=== PATIENT | female | born 1985 | race Caucasian/White ===

== ENCOUNTER 2018-09-19 20:30 | Emergency (ER) | payer OTHER ==
--- NOTE | 2018-09-19 21:39 | ED ---
Female Urogenital HPI - General Chief complaint: Vaginal Bleeding Stated complaint: 10 wks , bleeding Time Seen by Provider: 09/19/18 21:05 Source: patient, family Mode of arrival: ambulatory Limitations: no limitations - History of Present Illness Initial comments: Patient is a 33-year-old female presenting to the emergency Department with comp laints of increase in vaginal bleeding and lower abdominal cramping 2 days. Patient admits to being 10-1/2 weeks . Patient is . Patient states she has been having a little bit of spotting here and there are during this but states the bleeding has increased the last 2 days and then today she started having lower abdominal cramping. Patient seen her OB, Dr. Granda, on Friday for initial visit which just included lab work and a UA. Patient has yet to hear results on that. No other complaints at this time. - Related Data Home Medications Medication Instructions Recorded Confirmed Albuterol Nebulized [Ventolin 2.5 mg INHALATION RT-Q4H PRN 12/30/16 12/30/16 Nebulized] Albuterol Sulfate [Proair Hfa] 2 puff INHALATION RT-Q4H PRN 12/30/16 12/30/16 Previous Rx's Medication Instructions Recorded Cephalexin [Keflex] 500 mg PO Q12HR 10 Days cap 12/30/16 Allergies Allergy/AdvReac Type Severity Reaction Status Date / Time No Known Allergies Allergy Verified 09/19/18 21:03 Review of Systems ROS Statement: Those systems with pertinent positive or pertinent negative responses have been documented in the HPI. ROS Other: All systems not noted in ROS Statement are negative. Past Medical History Past Medical History: Asthma History of Any Multi-Drug Resistant Organisms: None Reported Past Surgical History: Section Past Anesthesia/Blood Transfusion Reactions: No Reported Reaction Past Psychological History: Anxiety, Depression Smoking Status: Current every day smoker Past Alcohol Use History: None Reported Past Drug Use History: Marijuana - Past Family History Father Family Medical History: Hypertension General Exam - General Exam Comments Initial Comments: GENERAL: Well-appearing, well-nourished and in no acute distress. HEAD: Atraumatic, normocephalic. EYES: Pupils equal round and reactive to light, extraocular movements intact, sclera anicteric, conjunctiva are normal. ENT: TMs normal, nares patent, oropharynx clear without exudates. Moist mucous membranes. NECK: Normal range of motion, supple without lymphadenopathy or JVD. LUNGS: Breath sounds clear to auscultation bilaterally and equal. Mild sc attered wheezes throughout (patient has history of asthma), No rales or rhonchi. HEART: Regular rate and rhythm without murmurs, rubs or gallops. ABDOMEN: Soft, nontender, normoactive bowel sounds. No guarding, no rebound. No masses appreciated. : Deferred, declined at this time EXTREMITIES: Normal range of motion, no pitting or edema. No clubbing or cyanosis. NEUROLOGICAL: Cranial nerves II through XII grossly intact. Normal speech, normal gait. PSYCH: Normal mood, normal affect. SKIN: Warm, Dry, normal turgor, no rashes or lesions noted. Limitations: no limitations Course Vital Signs 09/19/18 20:57 Temperature 98.3 F Pulse Rate 65 Respiratory 18 Rate Blood Pressure 133/82 O2 Sat by Pulse 100 Oximetry Medical Decision Making - Medical Decision Making Patient is a 33-year-old female with complaints of vaginal bleeding and abdominal cramping 2 days. Patient states she is 10.5 weeks . Patient is . Patient just recently had an initial visit with her OB, Dr. Granda, about 4 days ago and had very minimal spotting at that time. They had told her if her bleeding increases to come to the ER. Patient states last 2 days her bleeding has increased and now today she developed lower abdominal cramping. Patient declined vaginal exam at this time. Patient's CBC, CMP, UA are within normal limits. Ultrasound shows a pole measuring her gestational age of 8 weeks and no heart rate is detected this time. Findings are compatible with demise. Findings this were discussed with the patient. Patient states she believes she has positive type blood. Patient will follow up with OB on Friday morning. Return parameters were discussed with patient she verbalized understanding. Vital signs have remained stable during stay and patient will be discharged home. Case discussed with Dr. Lara. - Lab Data Result diagrams: 09/19/18 22:00 09/19/18 22:00 Lab Results 09/19/18 09/19/18 09/19/18 Range/Units 22:00 22:00 22:00 WBC 8.9 (3.8-10.6) k/uL RBC 4.32 (3.80-5.40) m/uL Hgb 14.3 (11.4-16.0) gm/dL Hct 42.7 (34.0-46.0) % MCV 98.7 (80.0-100.0) fL MCH 33.1 (25.0-35.0) pg MCHC 33.5 (31.0-37.0) g/dL RDW 12.0 (11.5-15.5) % Plt Count 229 (150-450) k/uL Neutrophils % 66 % Lymphocytes % 23 % Monocytes % 5 % Eosinophils % 3 % Basophils % 1 % Neutrophils # 5.9 (1.3-7.7) k/uL Lymphocytes # 2.0 (1.0-4.8) k/uL Monocytes # 0.5 (0-1.0) k/uL Eosinophils # 0.3 (0-0.7) k/uL Basophils # 0.1 (0-0.2) k/uL Sodium 140 (137-145) mmol/L Potassium 3.6 (3.5-5.1) mmol/L Chloride 105 (98-107) mmol/L Carbon Dioxide 25 (22-30) mmol/L Anion Gap 10 mmol/L BUN 6 L (7-17) mg/dL Creatinine 0.50 L (0.52-1.04) mg/dL Est GFR (CKD-EPI)AfAm >90 (>60 ml/min/1.73 sqM) Est GFR (CKD-EPI)NonAf >90 (>60 ml/min/1.73 sqM) Glucose 87 (74-99) mg/dL Calcium 9.7 (8.4-10.2) mg/dL HCG, Quant 56472.1 mIU/mL Urine Color Light Red Urine Appearance Cloudy H (Clear) Urine pH 6.0 (5.0-8.0) Ur Specific [place] 1.009 (1.001-1.035) Urine Protein 1+ H (Negative) Urine Glucose (UA) Negative (Negative) Urine Ketones Negative (Negative) Urine Blood Large H (Negative) Urine Nitrite Negative (Negative) Urine Bilirubin Negative (Negative) Urine Urobilinogen <2.0 (<2.0) mg/dL Ur Leukocyte Esterase Small H (Negative) Urine RBC >182 H (0-5) /hpf Urine WBC 16 H (0-5) /hpf Ur Squamous Epith Cells 4 (0-4) /hpf Disposition Clinical Impression: Incomplete , Vaginal bleeding Disposition: HOME SELF-CARE Condition: Stable Instructions (If sedation given, give patient instructions): Miscarriage (ED) Additional Instructions: Please return to the Emergency Department if symptoms worsen or any other concerns. Follow-up with your OB doctor on Friday morning. Is patient prescribed a controlled substance at d/c from ED?: No Referrals: Og Everett MD [Primary Care Provider] - 1-2 days
[2018-09-19 22:14] LABS: Basophils # (A) 0.1 k/uL (0-0.2); Basophils % (A) 1 %; Eosinophils # (A) 0.3 k/uL (0-0.7); Eosinophils % (A) 3 %; HCT 42.7 % (34.0-46.0); HGB 14.3 gm/dL (11.4-16.0); Lymphocytes % (A) 23 %; MCH 33.1 pg (25.0-35.0); MCHC 33.5 g/dL (31.0-37.0); MCV 98.7 fL (80.0-100.0); Mean Platelet Volume 6.8; Monocytes # (A) 0.5 k/uL (0-1.0); Monocytes % (A) 5 %; Neutrophils # (A) 5.9 k/uL (1.3-7.7); Neutrophils % (A) 66 %; Platelet Count 229 k/uL (150-450); RBC 4.32 m/uL (3.80-5.40); WBC 8.9 k/uL (3.8-10.6)
[2018-09-19 22:16] LABS: African American GFR (CKD) >90 (>60 ml/min/1.73 sqM); Anion Gap 10 mmol/L; Blood Urea Nitrogen 6 mg/dL (7-17); Calcium 9.7 mg/dL (8.4-10.2); Carbon Dioxide 25 mmol/L (22-30); Chloride 105 mmol/L (98-107); Glucose 87 mg/dL (74-99); Potassium 3.6 mmol/L (3.5-5.1); Sodium 140 mmol/L (137-145)
[2018-09-19 22:24] LABS: Appearance,Urine Cloudy (Clear); Bilirubin,Urine Negative (Negative); Blood,Urine Large (Negative); Color,Urine Light Red; Glucose,Urine (UA) Negative (Negative); Ketones,Urine Negative (Negative); Leukocyte Esterase,Urine Small (Negative); Nitrite,Urine Negative (Negative); Protein,Urine 1+ (Negative); RBC,Urine >182 /hpf (0-5); Specific Gravity,Urine 1.009 (1.001-1.035); Squamous Epithelial Cell,Urine 4 /hpf (0-4); Urobilinogen,Urine <2.0 mg/dL (<2.0)
--- NOTE | 2018-09-19 22:50 | US ---
EXAM: US Pelvis, Transvaginal CLINICAL HISTORY: ITS.REASON US Reason: Pain, bleeding TECHNIQUE: Real-time transvaginal pelvic ultrasound (complete) with image documentation. Transvaginal imaging was used for better evaluation of the endometrium and adnexa. COMPARISON: No relevant prior studies available. FINDINGS: Uterus/cervix: 9 cm. Normal endometrial stripe thickness. No myometrial mass. Right ovary: 3.7 cm. No mass. Normal blood flow. Left ovary: Not visualized. Free fluid: No free fluid. Bladder: Empty bladder which cannot be evaluated with this probe. Gestation: crown-rump length of 1.5 cm corresponding to gestational age of 8 weeks and 0 days. No heart rate is detected. IMPRESSION: pole is identified measuring up to 1.5 cm with no underlying heart rate. Findings are compatible with demise.
[2018-09-19 23:02] LABS: HCG,Quantitative Serum 16871.1 mIU/mL
[2018-09-19 23:28] VITALS: BP 127/77; PULSE 61; RESP 16; TEMP 98.1
== END 2018-09-19 23:27 | disposition home or self-care (01) ==
LOC: EC 20:30
DX: O03.4 Incomplete spontaneous abortion without complication (principal); O99.511 Diseases of the respiratory system complicating pregnancy, first trimester; O99.331 Smoking (tobacco) complicating pregnancy, first trimester; J45.909 Unspecified asthma, uncomplicated; F17.200 Nicotine dependence, unspecified, uncomplicated; Z3A.10 10 weeks gestation of pregnancy
CPT/HCPCS: 36415; 76801; 76817; 80048; 81001; 84702; 85025; 87086; 99284

== ENCOUNTER → 2018-09-23 | Outpatient (CLI) | payer OTHER ==
--- NOTE | 2018-09-23 12:39 | US ---
EXAMINATION TYPE: Transabdominal DATE OF EXAM: 09/23/2018 12:17 PM COMPARISON: US 2018 CLINICAL HISTORY: O03.4 Incomplete spontaneous without comp. Pelvic cramping and bleeding, f etal demise on previous exam, 6, para 4. EXAM PERFORMED: Transabdominal (TA) EXAM MEASUREMENTS: GESTATIONAL AGE / DATING Physician Established: (11 weeks/0 days) EDC: 04/14/2019 Dates by LMP: Unknown Dates by First Scan: (8 weeks/0 days) EDC: 05/05/2019 Dates by Current Scan for: (8 weeks/1 days) EDC: 05/04/2019 MATERNAL ANATOMY Uterus: 9.4 x 4.8 x 5.9cm, anteverted Right Ovary: 3.0 x 1.7 x 1.4cm Left Ovary: 2.6 x 1.9 x 1.7cm Post CDS / Adnexa: wnl Presence of free fluid: no Presence of corpus luteal cyst: not seen Presence of subchorionic bleed: no GESTATION / SURVEY CRL: 1.7cm (8 weeks/1 days) Yolk Sac (normal less than 6mm): not seen IUP: Demise Date of LMP: Unknown Beta HcG (if available): Not available at time of exam. IMPRESSION: Findings compatible with demise. Correlate clinically.
== END | disposition home or self-care (01) ==
LOC: RADUSWWP 11:20
PROVIDERS: ATTEND Obstetrics & Gynecology
DX: O03.4 Incomplete spontaneous abortion without complication (principal); Z3A.08 8 weeks gestation of pregnancy
CPT/HCPCS: 76801; 84702

== ENCOUNTER 2018-09-25 05:56 | Day surgery (SDC) | payer OTHER ==
[~2018-09-25 05:56] MED LIST: Pre Op ABX Message 1 EACH MISC MISCELLANE ONE
[2018-09-25] MEDS ORDERED: LACTATED RINGERS 1,000 ML IV SCH (06:33)
[2018-09-25] MEDS ORDERED: ONDANSETRON 4 MG/2 ML VIAL IVP ONE (06:33)
[2018-09-25] MEDS ORDERED: SCOPOLAMINE 1.5MG/72HR PATCH TRANSDERM ONE (06:33)
[2018-09-25] MEDS ORDERED: LIDOCAINE 1% 20 ML VIAL (10MG/ML) FOR IV START INTRADERMA PRN (06:33)
[2018-09-25] MEDS ORDERED: DEXAMETHASONE SOD PHOSPHATE 10 MG/ML 1 ML VIAL IV ONE (06:33)
[2018-09-25] MEDS ORDERED: KETOROLAC 30 MG/ML 1 ML VIAL IVP SCH (06:33)
[2018-09-25] MEDS ORDERED: ONDANSETRON 4 MG/2 ML VIAL IVP PRN (06:33)
[2018-09-25] MEDS ORDERED: fentaNYL (PF) 50 MCG/ML 2 ML AMP ONE (07:58)
[2018-09-25] MEDS ORDERED: LIDOCAINE 1% INJ 10MG/ML (20 ML MDV) ONE (07:58)
[2018-09-25] MEDS ORDERED: PROPOFOL 10 MG/ML 20 ML VIAL IV ONE (07:58)
[2018-09-25] MEDS ORDERED: MIDAZOLAM 2 MG/2 ML VIAL ONE (07:58)
--- NOTE | 2018-09-25 08:10 | P.HPOB ---
History of Present Illness H&P Date: 09/25/18 Chief Complaint: Missed AB 33 y/o woman with history of 8 week demise verified on 2 u/s over the last 5 days. beta hcg is falling. patient is aware that a week demise much of time may be passed on its own, however she has a job that she is to return 2 and due to cramping and bleeding she is unable to work. She would like completion this process as she is very concerned about the pain and heavy bleeding associated with a spontaneous miscarriage. Risks/benefits/alternatives were discussed with patient in detail and did include but were not limited to bleeding and infection possible perforation possibly for further surgeries. All questions were answered for her prior to proceeding to the operative room. On physical exam vital signs are stable and afebrile. Heart regular, lungs clear, extremities without pain. Abdomen soft nontender. Positive bowel sounds are noted. Pelvic exam generally unremarkable other than for 8-10 week size uterus. Cervix is minimally open due to previous bleeding. Assessment missed AB plan suction D&C Past Medical History Past Medical History: Asthma Additional Past Medical History / Comment(s): miscarriage about 8 weeks bleeding 09/25/18 History of Any Multi-Drug Resistant Organisms: None Reported Past Surgical History: Section Past Anesthesia/Blood Transfusion Reactions: No Reported Reaction Past Psychological History: Anxiety, Depression Additional Psychological History / Comment(s): previously medicated Smoking Status: Current every day smoker Past Alcohol Use History: None Reported Additional Past Alcohol Use History / Comment(s): pt states has occasional glass of wine, states had 1/2 glass with dinner last night Past Drug Use History: Marijuana - Past Family History Father Family Medical History: Hypertension Medications and Allergies Home Medications Medication Instructions Recorded Confirmed Type Albuterol Nebulized [Ventolin 2.5 mg INHALATION RT-Q4H PRN 12/30/16 09/25/18 History Nebulized] Albuterol Sulfate [Proair Hfa] 2 puff INHALATION RT-Q4H PRN 12/30/16 09/25/18 History Beclomethasone Dipropionate [Qvar 2 puff INHALATION BID 09/25/18 09/25/18 History 80 mcg] Salmeterol Xinafoate [Serevent 50 mcg INHALATION DAILY 09/25/18 09/25/18 History Diskus] Allergies Allergy/AdvReac Type Severity Reaction Status Date / Time No Known Allergies Allergy Verified 09/19/18 21:03 Exam Osteopathic Statement: *. No significant issues noted on an osteopathic structural exam other than those noted in the History and Physical/Consult. Vital Signs Temp Pulse Resp BP Pulse Ox 09/25/18 06:43 96.9 F L 93 18 105/69 97 Intake and Output 09/24/18 09/25/18 09/25/18 22:59 06:59 14:59 Other: Weight 45.359 kg - OBG Physical Exam Breast: both: normal (no masses) Abdomen: bowel sounds normal, no diffuse tenderness, no bruit present, no guarding noted, no hepatomegaly, no splenomegaly, no mass Vulva: both: normal Vagina: normal moisture, no discharge Cervix: no lesion, no discharge Uterus: normal size, normal contour Adnexa: both: normal Anus/Rectum: normal perianal skin, no rectal mass, no hemorrhoids, heme negative
--- NOTE | 2018-09-25 08:34 | P.OP ---
Date of Procedure: 09/25/18 Preoperative Diagnosis: Missed AB Postoperative Diagnosis: Same Procedure(s) Performed: Suction D&C Anesthesia: YGA Surgeon: Sixto Hdz Estimated Blood Loss (ml): 100 Pathology: other (Uterine curettings) Condition: stable Disposition: same day Operative Findings: Tissue pathology pending Description of Procedure: Patient was taken to the operating suite where a general anesthetic was found be adequate. She was prepped and draped in normal sterile fashion and placed in dorsal lithotomy position. Initially a weighted speculum was inserted into the vagina and the anterior lip of the cervix was identified and grasped with single-tooth tenaculum. Cervix was then dilated and using a 9 curved tip suction catheter it was inserted to the fundus and suction was applied clockwise rotation of the wand was then performed to remove the tissue 3 passes were done initially. Once this was accomplished very gentle sharp curettings of the endometrium were done to verify removal of all tissue and then 3 more passes with the suction performed. Uterus is firm and bleeding was very light conclusion of the procedure. Instruments were then all removed. Sponge, lap, needle counts were all correct 2. Patient was then taken to the recovery room in stable and satisfactory condition. Plan - Discharge Summary New Discharge Prescriptions: New Ibuprofen [Motrin] 600 mg PO Q6HR PRN #30 tab PRN Reason: Pain No Action Albuterol Sulfate [Proair Hfa] 2 puff INHALATION RT-Q4H PRN PRN Reason: Shortness Of Breath Albuterol Nebulized [Ventolin Nebulized] 2.5 mg INHALATION RT-Q4H PRN PRN Reason: Shortness Of Breath Salmeterol Xinafoate [Serevent Diskus] 50 mcg INHALATION DAILY Beclomethasone Dipropionate [Qvar 80 mcg] 2 puff INHALATION BID Discharge Medication List Albuterol Nebulized [Ventolin Nebulized] 2.5 mg INHALATION RT-Q4H PRN 12/30/16 [History] Albuterol Sulfate [Proair Hfa] 2 puff INHALATION RT-Q4H PRN 12/30/16 [History] Beclomethasone Dipropionate [Qvar 80 mcg] 2 puff INHALATION BID 09/25/18 [History] Ibuprofen [Motrin] 600 mg PO Q6HR PRN #30 tab 09/25/18 [Rx] Salmeterol Xinafoate [Serevent Diskus] 50 mcg INHALATION DAILY 09/25/18 [History] Follow up Appointment(s)/Referral(s): Sixto Hdz DO [Doctor of Osteopathic Medicine] - 2 Weeks Activity/Diet/Wound Care/Special Instructions: No heavy lifting, limit stairs and driving today, pelvic rest. If any high temperatures, heavy bleeding, or severe pain call my office Discharge Disposition: HOME SELF-CARE
[2018-09-25 08:49] VITALS: RESP 16; TEMP 98
[2018-09-25] MEDS: HYDROmorphone 0.5 MG/0.5 ML SYRINGE IVP PRN ×2 (08:57→09:05)
[2018-09-25] MEDS ORDERED: LACTATED RINGERS 1,000 ML IV ONE (09:04)
[2018-09-25 09:59] VITALS: BP 111/70; PULSE 66
== END 2018-09-25 10:12 | disposition home or self-care (01) ==
LOC: OR 05:56
PROVIDERS: ATTEND Obstetrics & Gynecology
DX: O02.1 Missed abortion (principal); J45.909 Unspecified asthma, uncomplicated; F41.9 Anxiety disorder, unspecified; F32.9 Major depressive disorder, single episode, unspecified; F17.200 Nicotine dependence, unspecified, uncomplicated; Z82.49 Family history of ischemic heart disease and other diseases of the circulatory system
CPT/HCPCS: 88305; 59820; J2250; J1100; J2405; J2001; J3010; J2704; J1170

== ENCOUNTER 2018-10-03 16:58 | Emergency (ER) | payer OTHER ==
[2018-10-03 17:15] VITALS: BP 113/74; PULSE 89; RESP 16; TEMP 97.5
[2018-10-03] MEDS ORDERED: KETOROLAC 30 MG/ML 1 ML VIAL IM STA ×2 (18:00→18:46)
--- NOTE | 2018-10-03 18:32 | XR ---
EXAMINATION TYPE: XR wrist complete RT DATE OF EXAM: 10/03/2018 CLINICAL HISTORY: Pain after fall injury. TECHNIQUE: Frontal, lateral, scaphoid, and oblique images of the wrist are obtained. COMPARISON: None FINDINGS: There is no acute fracture/dislocation evident in the right wrist. The joint spaces in th e right wrist appear within normal limits. The overlying soft tissue appears unremarkable. IMPRESSION: There is no acute fracture or dislocation in the right wrist.
[2018-10-03] MEDS ORDERED: LIDOCAINE 2% INJ 20 MG/ML (20 ML MDV) SQ STA (19:08)
[2018-10-03] MEDS ORDERED: GELATIN SPONGE,ABSORB (LARGE) 1 EACH SPONGE TOPICAL STA (19:12)
--- NOTE | 2018-10-03 19:38 | ED ---
General Adult HPI - General Chief complaint: Extremity Injury, Upper Stated complaint: wrist injury Time Seen by Provider: 10/03/18 17:16 Source: patient Mode of arrival: ambulatory Limitations: no limitations - History of Present Illness Initial comments: Patient is a 33-year-old female presenting to emergency Department with a chief complaint of accidentally cutting her right wrist on a broken beer bottle. Patient reports walking where she tripped causing the beer bottle to break and a laceration to the palmar aspect of the right wrist. Patient reports anatomical snuffbox tenderness. Patient also reports limited range of motion with flexion and extension of the right wrist. Patient reports a laceration on the palmar aspect along the first metacarpal. Patient reports her tetanus status is up-to-date. Patient denies any numbness or tingling. - Related Data Home Medications Medication Instructions Recorded Confirmed Albuterol Nebulized [Ventolin 2.5 mg INHALATION RT-Q4H PRN 12/30/16 09/25/18 Nebulized] Albuterol Sulfate [Proair Hfa] 2 puff INHALATION RT-Q4H PRN 12/30/16 09/25/18 Beclomethasone Dipropionate [Qvar 2 puff INHALATION BID 09/25/18 09/25/18 80 mcg] Salmeterol Xinafoate [Serevent 50 mcg INHALATION DAILY 09/25/18 09/25/18 Diskus] Previous Rx's Medication Instructions Recorded Ibuprofen [Motrin] 600 mg PO Q6HR PRN #30 tab 09/25/18 Allergies Allergy/AdvReac Type Severity Reaction Status Date / Time No Known Allergies Allergy Verified 10/03/18 17:15 Review of Systems ROS Statement: Those systems with pertinent positive or pertinent negative responses have been documented in the HPI. ROS Other: All systems not noted in ROS Statement are negative. Past Medical History Past Medical History: Asthma Additional Past Medical History / Comment(s): miscarriage about 8 weeks bleeding 09/25/18 History of Any Multi-Drug Resistant Organisms: None Reported Past Surgical History: Section Past Anesthesia/Blood Transfusion Reactions: No Reported Reaction Past Psychological History: Anxiety, Depression Smoking Status: Current every day smoker Past Alcohol Use History: None Reported Past Drug Use History: Marijuana - Past Family History Father Family Medical History: Hypertension General Exam Limitations: no limitations General appearance: alert, in no apparent distress Head exam: Present: atraumatic, normocephalic, normal inspection Eye exam: Present: normal appearance, PERRL, EOMI Pupils: Present: normal accommodation ENT exam: Present: normal exam, mucous membranes moist, normal external ear exam Neck exam: Present: normal inspection, full ROM Respiratory exam: Present: normal lung sounds bilaterally Cardiovascular Exam: Present: regular rate, normal rhythm, normal heart sounds Extremities exam: Present: full ROM (Limited range of motion on the right wrist), tenderness (Tenderness with palpation of the right wrist), normal capillary refill (. bilateral ), other (+2 ulnar radial pulses. Bilaterally). Absent: normal inspection (2 cm laceration on the palmar aspect along the right first metacarpal. Mild edema at the right wrist) Back exam: Present: normal inspection, full ROM Neurological exam: Present: alert, oriented X3 Psychiatric exam: Present: normal affect, normal mood Skin exam: Present: warm, intact, normal color Course Vital Signs 10/03/18 17:12 Temperature 97.5 F L Pulse Rate 89 Respiratory 16 Rate Blood Pressure 113/74 O2 Sat by Pulse 99 Oximetry Procedures - Laceration Laceration #1 Consent Obtained: verbal consent Indication: laceration Site: hand Size (cm): 2 Description: linear Depth: simple, single layer Sedation/Analgesia: none Anesthetic Used: lidocaine 1% Anesthesia Technique: local infiltration Amount (mls): 5 Pre-repair: wound explored Type of Sutures: nylon Size of Sutures: 4-0 Number of Sutures: 4 Technique: simple, interrupted Patient Tolerated Procedure: well Medical Decision Making - Medical Decision Making Patient is a 33-year-old female presenting to emergency Department with a chief complaint of accidental cutting her right wrist with a broken beer bottle. X- ray of the right hand is negative for acute fracture or dislocations. Laceration site was repaired with 4 sutures. Patient was also placed in a thumb spica considering she has anatomical snuffbox tenderness. Patient advised to follow with orthopedics and obtained repeat imaging in a week. Patient advised to come to the emergency department in 10-14 days for suture removal. Strict return parameters were thoroughly discussed with patient was or standing and agreeable. Case discussed with physician. Disposition Clinical Impression: Laceration of right hand Disposition: HOME SELF-CARE Condition: Stable Instructions (If sedation given, give patient instructions): Care For Your Stitches (DC), Laceration (DC) Additional Instructions: Please follow with orthopedics. Please return to emergency department for suture removal in 10-14 days or sooner if symptoms worsen. Please follow proper wound care instructions. Is patient prescribed a controlled substance at d/c from ED?: No Referrals: Og Everett MD [Primary Care Provider] - 1-2 days Russ Taylor DO [Medical Doctor] - 1-2 days Time of Disposition: 19:37
[2018-10-06] MEDS ORDERED: SODIUM CHLORIDE 0.9% IRRIG 1,000 ML BTL IRRIGATION ONE (01:44)
== END 2018-10-03 19:48 | disposition home or self-care (01) ==
LOC: EC 16:58
DX: S61.411A Laceration without foreign body of right hand, initial encounter (principal); J45.909 Unspecified asthma, uncomplicated; F17.200 Nicotine dependence, unspecified, uncomplicated; Z79.51 Long term (current) use of inhaled steroids; Z79.899 Other long term (current) drug therapy; W26.8XXA Contact with other sharp object(s), not elsewhere classified, initial encounter; Y93.01 Activity, walking, marching and hiking
CPT/HCPCS: 73110; 99283; 12001; J2001; J1885

== ENCOUNTER 2019-05-19 13:52 | Emergency (ER) | payer OTHER ==
[2019-05-19 14:12] VITALS: RESP 18; TEMP 98
[2019-05-19 15:05] LABS: Appearance,Urine Clear (Clear); Bilirubin,Urine Negative (Negative); Blood,Urine Trace (Negative); Color,Urine Light Yellow; Glucose,Urine (UA) Negative (Negative); Hyaline Casts,Urine 1 /lpf (0-2); Ketones,Urine Negative (Negative); Leukocyte Esterase,Urine Negative (Negative); Mucus,Urine Rare /hpf; Nitrite,Urine Negative (Negative); PH, Urine 5.5 (5.0-8.0); Protein,Urine Negative (Negative); RBC,Urine 1 /hpf (0-5); Specific Gravity,Urine 1.005 (1.001-1.035); Squamous Epithelial Cell,Urine 1 /hpf (0-4); Urobilinogen,Urine <2.0 mg/dL (<2.0); WBC,Urine <1 /hpf (0-5)
--- NOTE | 2019-05-19 15:22 | ED ---
Female Urogenital HPI - General Chief complaint: Vaginal Bleeding Stated complaint: Vaginal Bleeding, Poss Miscarriage Time Seen by Provider: 05/19/19 14:15 Source: patient Mode of arrival: ambulatory Limitations: no limitations - History of Present Illness Initial comments: Patient is a 34-year-old female presenting to emergency Department with complai nts of vaginal discharge x 1 day. Patient is currently 9 weeks and stated she was recently diagnosed with BV and was treated with a gel cream. Patient states she has been using it for the past week and tomorrow was her last dose. Patient states today she's been noticing brown discharge. She denies any abdominal pain or cramping. She thinks she may have been bleeding a little bit. Patient denies any fever, chills, dysuria. She has no other complaints at this time. Patient is . Upon arrival to the ER, her vital signs are stable. - Related Data Home Medications Medication Instructions Recorded Confirmed Albuterol Nebulized [Ventolin 2.5 mg INHALATION RT-Q4H PRN 12/30/16 09/25/18 Nebulized] Albuterol Sulfate [Proair Hfa] 2 puff INHALATION RT-Q4H PRN 12/30/16 09/25/18 Beclomethasone Dipropionate [Qvar 2 puff INHALATION BID 09/25/18 09/25/18 80 mcg] Salmeterol Xinafoate [Serevent 50 mcg INHALATION DAILY 09/25/18 09/25/18 Diskus] Previous Rx's Medication Instructions Recorded Ibuprofen [Motrin] 600 mg PO Q6HR PRN #30 tab 09/25/18 Allergies Allergy/AdvReac Type Severity Reaction Status Date / Time No Known Allergies Allergy Verified 05/19/19 14:12 Review of Systems ROS Statement: Those systems with pertinent positive or pertinent negative responses have been documented in the HPI. ROS Other: All systems not noted in ROS Statement are negative. Past Medical History Past Medical History: Asthma Additional Past Medical History / Comment(s): miscarriage about 8 weeks bleeding 09/25/18 History of Any Multi-Drug Resistant Organisms: None Reported Past Surgical History: Section Past Anesthesia/Blood Transfusion Reactions: No Reported Reaction Past Psychological History: Anxiety, Depression Smoking Status: Current every day smoker Past Alcohol Use History: None Reported Past Drug Use History: Marijuana - Past Family History Father Family Medical History: Hypertension General Exam - General Exam Comments Initial Comments: GENERAL: Well-appearing, well-nourished and in no acute distress. HEAD: Atraumatic, normocephalic. EYES: Pupils equal round and reactive to light, extraocular movements intact, sclera anicteric, conjunctiva are normal. ENT: TMs normal, nares patent, oropharynx clear without exudates. Moist mucous membranes. NECK: Normal range of motion, supple without lymphadenopathy or JVD. LUNGS: Breath sounds clear to auscultation bilaterally and equal. No wheezes rales or rhonchi. HEART: Regular rate and rhythm without murmurs, rubs or gallops. ABDOMEN: Soft, nontender, normoactive bowel sounds. No guarding, no rebound. No masses appreciated. EXTREMITIES: Normal range of motion, no pitting or edema. No clubbing or cyanosis. NEUROLOGICAL: Normal speech, normal gait. PSYCH: Normal mood, normal affect. SKIN: Warm, Dry, normal turgor, no rashes or lesions noted. Limitations: no limitations External exam: Present: normal external exam. Absent: erythema, swelling, lesions Speculum exam: Present: cervical discharge (Dark brown/reddish discharge). Absent: vaginal bleeding, foreign body By manual exam: Present: normal by manual exam Course Vital Signs 05/19/19 05/19/19 14:09 16:25 Temperature 98 F Pulse Rate 89 65 Respiratory 18 18 Rate Blood Pressure 126/71 114/80 O2 Sat by Pulse 98 10 L Oximetry Medical Decision Making - Medical Decision Making Patient is a 34-year-old female presenting with vaginal discharge times one day. She is 9 weeks . . Patient is currently looking for an AIR CONDITIONING INSULATION INSTALLER. She is hoping to get into Dr. Aquino's office. Patient is denying any abdominal pain. Patient's beta hCG is over 12,000. Ultrasound reveals findings suggestive of probable impending spontaneous but also could be too early to visualize and ectopic is not entirely excluded. Recommend serial beta as well as ultrasound. Patient is stable for discharge. Patient is agreeable with this plan of care. Return parameters were discussed with the patient she verbalized understanding. Case discussed with Dr. Lemon. - Lab Data Lab Results 05/19/19 05/19/19 05/19/19 Range/Units 14:43 14:43 14:43 HCG, Quant 58973.9 mIU/mL Urine Color Light Yellow Urine Appearance Clear (Clear) Urine pH 5.5 (5.0-8.0) Ur Specific [place] 1.005 (1.001-1.035) Urine Protein Negative (Negative) Urine Glucose (UA) Negative (Negative) Urine Ketones Negative (Negative) Urine Blood Trace H (Negative) Urine Nitrite Negative (Negative) Urine Bilirubin Negative (Negative) Urine Urobilinogen <2.0 (<2.0) mg/dL Ur Leukocyte Esterase Negative (Negative) Urine RBC 1 (0-5) /hpf Urine WBC <1 (0-5) /hpf Ur Squamous Epith Cells 1 (0-4) /hpf Hyaline Casts 1 (0-2) /lpf Urine Mucus Rare H (None) /hpf Trichomonas Ag (Rapid) Negative (Negative) Disposition Clinical Impression: Vaginal discharge during , Threatened Disposition: HOME SELF-CARE Condition: Stable Instructions (If sedation given, give patient instructions): Threatened Miscarriage (ED) Additional Instructions: Please return to the Emergency Department if symptoms worsen or any other concerns. Repeat beta levels and 48 hours as discussed. Follow up with AIR CONDITIONING INSULATION INSTALLER. Is patient prescribed a controlled substance at d/c from ED?: No Referrals: Og Everett MD [Primary Care Provider] - 1-2 days Savannah Byrne DO [Doctor of Osteopathic Medicine] - 1-2 days
--- NOTE | 2019-05-19 15:47 | US ---
EXAMINATION TYPE: Transabdominal DATE OF EXAM: 05/19/2019 3:29 PM COMPARISON: NONE CLINICAL HISTORY: bleeding. dark brown bleeding since Apr 19, no cramping, EXAM PERFORMED: OBTA/OBTV EXAM MEASUREMENTS: GESTATIONAL AGE / DATING Physician Established: Not yet established Dates by LMP: (10 weeks/1 days) EDC: 12/14/2019 Dates by First Scan: ASSIGNER Dates by Current Scan for: (5 weeks/4 days) EDC: 01/15/2020 MATERNAL ANATOMY Uterus: 8.8 x 5.4 x 4.4cm Right Ovary: 3.2 x 2.0 x 1.6cm Left Ovary: 2.4 x 1.8 x 1.9cm Post CDS / Adnexa: wnl Presence of free fluid: no Presence of corpus luteal cyst: not seen Presence of subchorionic bleed: possible, irregular appearance around gestational sac GESTATION / SURVEY MSD: 1.4cm (5 weeks/4 days), irregular borders within internal debris that does not appear to be fetu s. Date of LMP: 03/09/2019 Beta HcG (if available): 12,475 Heterogeneous anteverted uterus. Central lobulated anechoic area measuring 1.6 x 1.3 x 1.1 cm. findin g could reflect gestational sac but is more irregular or hourglass in shape towards end of study with out significant adjacent decidual reaction. No yolk sac or pole is clearly seen. Some internal irregular echoes is present. No free fluid in pelvic cul-de-sac. Both ovaries are seen. No concerning adnexal lesions. IMPRESSION: Findings suggest probable impending spontaneous given patient's symptoms but too early to visualize is in differential and ectopic is not entirely excluded. Seri al beta hCG and ultrasound follow-up is advised.
[2019-05-19 16:26] VITALS: BP 114/80; PULSE 65
[2019-05-20 15:36] LABS: C. trachomatis,PCR Negative (Neg,Equiv); Chlamydia trachomatis Source Cervix; N. gonorrhoeae,PCR Negative (Neg,Equiv); Neisseria Source Cervix
== END 2019-05-19 16:26 | disposition home or self-care (01) ==
LOC: EC 13:52
DX: O20.0 Threatened abortion (principal); O99.511 Diseases of the respiratory system complicating pregnancy, first trimester; J45.909 Unspecified asthma, uncomplicated; O99.331 Smoking (tobacco) complicating pregnancy, first trimester; F17.200 Nicotine dependence, unspecified, uncomplicated; Z79.51 Long term (current) use of inhaled steroids; Z79.899 Other long term (current) drug therapy; Z98.890 Other specified postprocedural states; Z3A.01 Less than 8 weeks gestation of pregnancy
CPT/HCPCS: 36415; 76801; 76817; 81001; 84702; 87070; 87491; 87591; 87808; 99284

== ENCOUNTER → 2019-05-21 | Outpatient (CLI) | payer OTHER | END | disposition home or self-care (01) | LOC: LABWHC1 10:24 | PROVIDERS: ATTEND Specialist/Technologist Athletic Trainer | DX: O20.0 Threatened abortion (principal) | CPT/HCPCS: 36415; 84702 ==

== ENCOUNTER → 2019-07-07 | Outpatient (CLI) | payer OTHER | END | disposition home or self-care (01) | LOC: LABWHC1 12:26 | PROVIDERS: ATTEND Obstetrics & Gynecology Obstetrics | DX: U07.1 COVID-19 (principal) | CPT/HCPCS: 87635 ==

== ENCOUNTER 2019-07-09 06:05 | Day surgery (SDC) | payer OTHER ==
[2019-07-08 09:23] VITALS: BMI 19.1
[2019-07-09] MEDS ORDERED: LACTATED RINGERS 1,000 ML IV ONE (06:22)
[2019-07-09] MEDS ORDERED: LIDOCAINE 1% (10MG/ML) FOR IV START INTRADERMA ONE (06:22)
[2019-07-09 06:37] LABS: Basophils # (A) 0.1 k/uL (0-0.2); Basophils % (A) 1 %; Eosinophils # (A) 0.4 k/uL (0-0.7); Eosinophils % (A) 5 %; HCT 43.5 % (34.0-46.0); HGB 14.3 gm/dL (11.4-16.0); Lymphocytes # (A) 2.4 k/uL (1.0-4.8); Lymphocytes % (A) 27 %; MCH 32.3 pg (25.0-35.0); MCHC 32.9 g/dL (31.0-37.0); MCV 98.2 fL (80.0-100.0); Mean Platelet Volume 7.2; Monocytes # (A) 0.5 k/uL (0-1.0); Monocytes % (A) 6 %; Neutrophils # (A) 5.2 k/uL (1.3-7.7); Neutrophils % (A) 60 %; Platelet Count 267 k/uL (150-450); RBC 4.43 m/uL (3.80-5.40); RDW 12.1 % (11.5-15.5); WBC 8.8 k/uL (3.8-10.6)
[2019-07-09] MEDS ORDERED: DEXAMETHASONE SOD PHOSPHATE 10 MG/ML 1 ML VIAL IV ONE (06:38)
[2019-07-09] MEDS ORDERED: HYDROmorphone 0.5 MG/0.5 ML SYRINGE IVP PRN (06:38)
[2019-07-09] MEDS ORDERED: ONDANSETRON 4 MG/2 ML VIAL IVP ONE ×2 (06:38→06:39)
[2019-07-09] MEDS ORDERED: DEXAMETHASONE SOD PHOS (MDV) 100 MG/10 ML VIAL IVP ONE (06:39)
[2019-07-09] MEDS ORDERED: LACTATED RINGERS 1,000 ML IV SCH (06:45)
[2019-07-09] MEDS ORDERED: KETOROLAC 30 MG/ML 1 ML VIAL ONE (07:07)
[2019-07-09] MEDS ORDERED: MIDAZOLAM 2 MG/2 ML VIAL ONE (07:07)
[2019-07-09] MEDS ORDERED: PROPOFOL 10 MG/ML 20 ML VIAL IV ONE (07:07)
[2019-07-09] MEDS ORDERED: LIDOCAINE 1% INJ 10MG/ML (20 ML MDV) ONE (07:07)
[2019-07-09] MEDS ORDERED: SUCCINYLCHOLINE CHLORIDE 100 MG/5 ML SYR IV ONE (07:07)
[2019-07-09] MEDS ORDERED: FERRIC SUBSULFATE (MONSELS) JAR TOPICAL ONE (07:36)
[2019-07-09] MEDS ORDERED: SILVER NITRATE APPLICATOR 1 EACH STICK..EA. TOPICAL ONE (07:36)
--- NOTE | 2019-07-09 07:46 | P.OP ---
Date of Procedure: 07/09/19 Preoperative Diagnosis: blighted ovum Postoperative Diagnosis: same Procedure(s) Performed: Suction dilation and curettage Anesthesia: MAC Surgeon: Savannah Byrne Estimated Blood Loss (ml): 10 IV fluids (ml): 400 Urine output (ml): 100 Pathology: other (Uterine contents) Condition: stable Disposition: PACU Indications for Procedure: This pleasant 34-year-old female presented to the office with findings of blighted ovum on an ultrasound done in the emergency department. Ultrasound confirmed presence of blighted ovum in the office. Patient elected suction dilation and curettage. Operative Findings: Moderate amount of products of conception are noted. Description of Procedure: Patient was taken to the operating suite where general anesthesia was obtained without difficulty by the anesthesia department. She was prepped and draped in normal sterile fashion in the dorsal lithotomy position. A red rubber catheter was used to drain the bladder of clear yellow urine. A weighted speculum posterior vaginal vault intralipids the cervix was grasped with single-tooth tenaculum. Endocervical canal was dilated and an 8 curved suction curette was placed through the cervix and toward the endometrial cavity a moderate amount of products of conception were obtained. A gentle sharp curettage was then performed. The suction device was placed in the cavity once more to ensure all products had been removed. The single-tooth tenaculum was taken off of the anterior lip of the cervix bleeding was noted and Monsel solution was placed over the area hemostasis was appreciated. Next Patient tolerated procedure well all counts were correct 2 patient was taken the recovery room awake in stable condition.
[2019-07-09 07:55] VITALS: TEMP 97.6
[2019-07-09 08:23] VITALS: RESP 16
[2019-07-09 08:36] VITALS: BP 111/67; PULSE 71
== END 2019-07-09 09:10 | disposition home or self-care (01) ==
LOC: OR 06:05
PROVIDERS: ATTEND Obstetrics & Gynecology Obstetrics
DX: O02.0 Blighted ovum and nonhydatidiform mole (principal); J45.909 Unspecified asthma, uncomplicated; F32.9 Major depressive disorder, single episode, unspecified; Z98.890 Other specified postprocedural states; Z83.3 Family history of diabetes mellitus; F17.210 Nicotine dependence, cigarettes, uncomplicated
CPT/HCPCS: 86900; 86901; 85025; 86850; 59820; J2250; J2405; J2001; J1885; J1100; J0330; J2704; J1170; 88305

== ENCOUNTER 2020-10-28 19:31 | Emergency (ER) | payer OTHER ==
[2020-10-28 19:45] VITALS: TEMP 98.2
[2020-10-28] MEDS ORDERED: HYDROmorphone 0.5 MG/0.5 ML SYRINGE IM STA (20:02)
[2020-10-28] MEDS ORDERED: ONDANSETRON 4 MG/2 ML VIAL IVP STA (20:02)
[2020-10-28 20:33] LABS: Basophils # (A) 0.1 k/uL (0-0.2); Basophils % (A) 1 %; Eosinophils # (A) 0.2 k/uL (0-0.7); Eosinophils % (A) 2 %; HCT 47.6 % (34.0-46.0); HGB 16.1 gm/dL (11.4-16.0); Lymphocytes # (A) 1.4 k/uL (1.0-4.8); Lymphocytes % (A) 16 %; MCH 35.7 pg (25.0-35.0); MCHC 33.8 g/dL (31.0-37.0); MCV 105.6 fL (80.0-100.0); Macrocytosis Moderate; Mean Platelet Volume 7.4; Monocytes # (A) 0.5 k/uL (0-1.0); Monocytes % (A) 6 %; Neutrophils # (A) 6.5 k/uL (1.3-7.7); Neutrophils % (A) 73 %; Platelet Count 318 k/uL (150-450); RDW 14.2 % (11.5-15.5); WBC 8.9 k/uL (3.8-10.6)
[2020-10-28 20:43] LABS: ALT 21 U/L (4-34); AST 34 U/L (14-36); African American GFR (CKD) >90 (>60 ml/min/1.73 sqM); Albumin 4.6 g/dL (3.5-5.0); Alkaline Phosphatase 79 U/L (38-126); Anion Gap 9 mmol/L; Blood Urea Nitrogen 9 mg/dL (7-17); Carbon Dioxide 20 mmol/L (22-30); Chloride 106 mmol/L (98-107); Glucose 106 mg/dL (74-99); Non-African American GFR(CKD) >90 (>60 ml/min/1.73 sqM); Potassium 4.2 mmol/L (3.5-5.1); Sodium 135 mmol/L (137-145); Total Bilirubin 0.9 mg/dL (0.2-1.3); Total Protein 7.3 g/dL (6.3-8.2)
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
--- NOTE | 2020-10-28 21:22 | XR ---
EXAMINATION TYPE: XR ankle complete LT DATE OF EXAM: 10/28/2020 COMPARISON: NONE HISTORY: Ankle pain TECHNIQUE: 3 views FINDINGS: Ankle mortise is anatomic. I see no fracture nor dislocation. Joint spaces are normal. IMPRESSION: Negative left ankle exam.
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
[2020-10-28 22:35] VITALS: BP 122/79; PULSE 72; RESP 15
[2020-10-28 23:04] LABS: Amorphous Sediment,Urine Few /hpf; Appearance,Urine Cloudy (Clear); Bacteria,Urine Rare /hpf; Bilirubin,Urine Negative (Negative); Blood,Urine Large (Negative); Color,Urine Light Red; Glucose,Urine (UA) Negative (Negative); Hyaline Casts,Urine 5 /lpf (0-2); Ketones,Urine 1+ (Negative); Leukocyte Esterase,Urine Trace (Negative); Mucus,Urine Rare /hpf; Nitrite,Urine Negative (Negative); PH, Urine 5.5 (5.0-8.0); Protein,Urine 1+ (Negative); RBC,Urine 2 /hpf (0-5); Specific Gravity,Urine 1.015 (1.001-1.035); Squamous Epithelial Cell,Urine 7 /hpf (0-4); Urobilinogen,Urine <2.0 mg/dL (<2.0); WBC,Urine 7 /hpf (0-5)
== END 2020-10-28 23:20 | disposition home or self-care (01) ==
LOC: EC 19:31
DX: S16.1XXA Strain of muscle, fascia and tendon at neck level, initial encounter (principal); S39.012A Strain of muscle, fascia and tendon of lower back, initial encounter; M25.552 Pain in left hip; M25.572 Pain in left ankle and joints of left foot; R51.9 Headache, unspecified; N39.0 Urinary tract infection, site not specified; J45.909 Unspecified asthma, uncomplicated; F32.9 Major depressive disorder, single episode, unspecified; F41.9 Anxiety disorder, unspecified; F17.200 Nicotine dependence, unspecified, uncomplicated; F12.90 Cannabis use, unspecified, uncomplicated; Z79.899 Other long term (current) drug therapy; V48.5XXA Car driver injured in noncollision transport accident in traffic accident, initial encounter; Y92.410 Unspecified street and highway as the place of occurrence of the external cause
CPT/HCPCS: 36415; 93005; 80053; 83605; 84484; 85025; 81001; 81025; 73502; 73610; 71045; 72125; 70486; 70450; 96374; 96372; 99284; J2405; J1170

== ENCOUNTER 2021-01-17 17:13 | Emergency (ER) | payer OTHER ==
[2021-01-17 17:46] VITALS: TEMP 98.1
[2021-01-17] MEDS ORDERED: IPRATROPIUM-ALBUTEROL 3 ML NEB INHALATION STA (18:41)
[2021-01-17] MEDS ORDERED: DEXAMETHASONE SOD PHOSPHATE 10 MG/ML 1 ML VIAL IM STA (18:41)
--- NOTE | 2021-01-17 20:05 | XR ---
EXAMINATION TYPE: XR chest 2V DATE OF EXAM: 01/17/2021 CLINICAL HISTORY: cough. TECHNIQUE: Frontal and lateral view of the chest. COMPARISON: 10/28/2020 FINDINGS: The cardiomediastinal silhouette is within normal limits for size. Pulmonary vasculature i s normal. There is no focal air space opacity. No pleural effusion. No pneumothorax seen. No acute d isplaced osseous fracture. IMPRESSION: No acute cardiopulmonary process.
--- NOTE | 2021-01-17 20:18 | ED ---
URI HPI - General Chief Complaint: Upper Respiratory Infection Stated Complaint: Cough Time Seen by Provider: 01/17/21 18:41 Source: patient, RN notes reviewed Mode of arrival: ambulatory Limitations: no limitations - History of Present Illness Initial Comments: Patient is a 35-year-old female that presents to the emergency department complaining of upper respiratory tract symptoms. She notes she does have a history of asthma. She notes when she gets together she usually gets pre-severe symptoms. Patient denied any other issues or complaints that time. She notes that mild cough with some shortness of breath. She denied any chest pain headache nausea vomiting diarrhea constipation fever fatigue chills. - Related Data Home Medications Medication Instructions Recorded Confirmed Albuterol Nebulized [Ventolin 2.5 mg INHALATION RT-Q4H PRN 12/30/16 01/17/21 Nebulized] Albuterol Sulfate [Proair Hfa] 2 puff INHALATION RT-Q6H PRN 10/28/20 01/17/21 Budesonide/Formoterol Fumarate 2 puff INHALATION RT-BID 10/28/20 01/17/21 [Symbicort 160-4.5 Mcg Inhaler] Montelukast [Singulair] 10 mg PO HS 01/17/21 01/17/21 Allergies Allergy/AdvReac Type Severity Reaction Status Date / Time bee venom protein (honey bee) Allergy Anaphylaxis Verified 01/17/21 19:59 Review of Systems ROS Statement: Those systems with pertinent positive or pertinent negative responses have been documented in the HPI. ROS Other: All systems not noted in ROS Statement are negative. Past Medical History Past Medical History: Asthma Additional Past Medical History / Comment(s): miscarriage about 8 weeks bleeding 09/25/18 History of Any Multi-Drug Resistant Organisms: None Reported Past Surgical History: Section Past Anesthesia/Blood Transfusion Reactions: No Reported Reaction Past Psychological History: Anxiety, Depression Smoking Status: Current every day smoker Past Alcohol Use History: Occasional Past Drug Use History: Marijuana - Past Family History Father Family Medical History: Hypertension General Exam Limitations: no limitations General appearance: alert, in no apparent distress Head exam: Present: atraumatic, normocephalic, normal inspection Eye exam: Present: normal appearance, PERRL, EOMI. Absent: scleral icterus, conjunctival injection, periorbital swelling ENT exam: Present: normal exam, mucous membranes moist Neck exam: Present: normal inspection Respiratory exam: Present: normal lung sounds bilaterally. Absent: respiratory distress, wheezes, rales, rhonchi, stridor Cardiovascular Exam: Present: regular rate, normal rhythm, normal heart sounds. Absent: systolic murmur, diastolic murmur, rubs, gallop, clicks Extremities exam: Present: normal inspection, full ROM, normal capillary refill. Absent: tenderness, pedal edema, joint swelling, calf tenderness Neurological exam: Present: alert, oriented X3 Psychiatric exam: Present: normal affect, normal mood Skin exam: Present: warm, dry, intact, normal color. Absent: rash Course Vital Signs 01/17/21 17:42 Temperature 98.1 F Pulse Rate 83 Respiratory 20 Rate Blood Pressure 124/83 O2 Sat by Pulse 99 Oximetry Medical Decision Making - Medical Decision Making 25-year-old female with asthma and upper respiratory tract symptoms. 10 mg of Decadron, Covid test, chest x-ray, breathing treatment with DuoNeb ordered. Chest x-ray shows no acute cardiopulmonary process. Covid test negative. Patient is agreeable with discharge home. Case discussed with Dr. Love, patient can discharge home. - Lab Data Lab Results 01/17/21 Range/Units 17:49 Coronavirus (PCR) Not Detected (Not Detectd) - Radiology Data Radiology results: report reviewed, image reviewed Chest x-ray: No acute cardiopulmonary process. Disposition Clinical Impression: Upper respiratory tract infection Disposition: HOME SELF-CARE Condition: Stable Instructions (If sedation given, give patient instructions): Upper Respiratory Infection (ED) Additional Instructions: Please return to the Emergency Department if symptoms worsen or any other concerns. Is patient prescribed a controlled substance at d/c from ED?: No Referrals: None,Stated [Primary Care Provider] - 1-2 days Time of Disposition: 20:17
[2021-01-17 20:34] VITALS: BP 122/64; RESP 16
[2021-01-17 20:45] VITALS: PULSE 80
== END 2021-01-17 21:07 | disposition home or self-care (01) ==
LOC: EC 17:13
DX: J06.9 Acute upper respiratory infection, unspecified (principal); J45.909 Unspecified asthma, uncomplicated; F41.9 Anxiety disorder, unspecified; F32.9 Major depressive disorder, single episode, unspecified; F17.200 Nicotine dependence, unspecified, uncomplicated; F12.90 Cannabis use, unspecified, uncomplicated; Z20.822 Contact with and (suspected) exposure to COVID-19
CPT/HCPCS: 99285; 96372; 94640; 87635; 71046; J1100

== ENCOUNTER 2021-07-24 20:51 | Outpatient (CLI) | payer OTHER ==
[2021-07-24 23:04] VITALS: BP 99/57; PULSE 76; RESP 18; TEMP 97.8
--- NOTE | 2021-08-26 15:04 | P.MSEPDOC ---
Presenting Problems - Arrival Data Date of Arrival on Unit: 07/24/21 Time of Arrival on Unit: 20:51 Mode of Transport: Wheelchair - Complaint OB-Reason for Admission/Chief Complaint: Other Comment: RN spoke with Dr. Byrne. Rn relayed that patient stated she was having chest. pain/anxiety attack and went to ER for evaluation. After being cleared by them they. wanted her to come to our ob triage for monitoring. Patient states she was having. a cough and chest pain since . She currently sees a for her twin. . Both baby A and baby B are active on the monitor. No contractions per mother. and per toco. Patients vital signs within normal limits Medical History - Information : 8 Para: 5 Term: 5 : 0 Abortions: Spontaneous or Elective: 2 Number of Living Children: 5 - Gestational Age Gestational Age by CUAUHTEMOC (wks/days): 27 Weeks and 2 Days - History Complications: Multiple , Smoker Review of Systems - Review of Systems Constitutional: No problems Breast: No problems ENT: No problems Cardiovascular: No problems Respiratory: No problems Gastrointestinal: No problems Genitourinary: No problems Musculoskeletal: No problems Neurological: No problems Skin: No problems Comment: Patient has a dry cough since Vital Signs - Temperature Temperature: 97.8 F Temperature Source: Oral - Pulse Right Brachial Pulse Rate: 76 Pulse Assessment Method: Automatic Cuff - Respirations Respiratory Rate: 18 Oxygen Delivery Method: Room Air - Blood Pressure Right Arm Blood Pressure: 99/57 Blood Pressure Mean: 71 Blood Pressure Source: Automatic Cuff Medical Screen Scoring - Assessment - Baby A Baseline FHR: 140 Heart Rate - NICHD Category: Category I (Normal) - Assessment - Baby B Baseline FHR: 140 Heart Rate - NICHD Category: Category I (Normal) Physician Notification - Physician Notified Physician Notified Date: 07/24/21 Physician Notified Time: 21:30 Physician: Savannah Byrne New Order Received: Yes - Notification Comment Comment: Covid and influenza swabs to be taken. Patient unwilling to stay for results and is requesting we notify her by telephone of her results. Maternal Triage Index - Maternal Triage Index Presenting for scheduled procedure w/no complaint: No - Stat/Priority 1 Stat Priority 1: No - Urgent/Priority 2 Urgent Priority 2: No - Prompt/Priority 3 Prompt Priority 3: No - Non-Urgent/Priority 4 Non-Urgent Priority 4: Yes Criteria Met for Priority 4: Patient sent from ER for monitoring Disposition - Disposition OB Disposition: Discharge to home Discharge Date: 07/24/21 Discharge Time: 22:00 I agree with the RN Medical Screening Exam: Yes Case reviewed; plan agreed upon as documented in EMR&OBIX.: Yes Diagnosis: RELATED CONDITIONS, UNSPECIFIED, SECOND TRIMESTER
== END 2021-07-24 22:10 | disposition home or self-care (01) ==
LOC: FBPOP 20:51
PROVIDERS: ATTEND Obstetrics & Gynecology Obstetrics
DX: Z34.92 Encounter for supervision of normal pregnancy, unspecified, second trimester (principal); Z87.891 Personal history of nicotine dependence; Z91.030 Bee allergy status
CPT/HCPCS: 87502; 87635; G0463; 99213

== ENCOUNTER 2022-03-09 11:33 | Emergency (ER) | payer OTHER ==
--- NOTE | 2022-03-09 12:26 | ED ---
General Adult HPI - General Source: patient, RN notes reviewed Mode of arrival: ambulatory Limitations: no limitations <Chelsie Dia - Last Filed: 03/09/22 12:24> - General Source: patient, RN notes reviewed Mode of arrival: ambulatory Limitations: no limitations <Maryanne Arellano - Last Filed: 03/10/22 04:09> - General Chief complaint: Abdominal Pain Stated complaint: R. Side Abd Pain - History of Present Illness Initial comments: 36 year old female presents to the emergency department for abdominal pain x 1 week. She reports that this morning she woke up and it was worse. She describes the pain as sharp and worse if she tries to lift anything heavy. She has been taking aspirin without relief. She denies chest pain, palpitations, shortness of breath, nausea, vomiting, diarrhea. Her last BM was this morning and was normal for her. (Chelsie Dia) 36-year-old female presents to the emergency Department with complaints of right lower quadrant abdominal pain that has been worsening for the past week. States while she was feeding her baby this afternoon and the pain worsened with lifting. States she had to hand off the baby in order to brace her side. Has been taking (Maryanne Arellano) - Related Data Home Medications Medication Instructions Recorded Confirmed Albuterol Nebulized [Ventolin 2.5 mg INHALATION RT-QID 12/30/16 03/09/22 Nebulized] Albuterol Sulfate [Proair Hfa] 2 puff INHALATION RT-TID PRN 10/28/20 03/09/22 Budesonide/Formoterol Fumarate 2 puff INHALATION RT-BID 10/28/20 03/09/22 [Symbicort 160-4.5 Mcg Inhaler] busPIRone HCl [Buspar] 10 mg PO BID PRN 03/09/22 03/09/22 Previous Rx's Medication Instructions Recorded Ketorolac [Toradol] 10 mg PO Q8HR PRN #15 tab 03/09/22 Allergies Allergy/AdvReac Type Severity Reaction Status Date / Time bee venom protein (honey bee) Allergy Anaphylaxis Verified 03/09/22 18:31 Review of Systems ROS Other: All systems not noted in ROS Statement are negative. <Chelsie Dia - Last Filed: 03/09/22 12:24> ROS Other: All systems not noted in ROS Statement are negative. <Maryanne Arellano - Last Filed: 03/10/22 04:09> ROS Statement: Those systems with pertinent positive or pertinent negative responses have been documented in the HPI. Past Medical History Past Medical History: Asthma Additional Past Medical History / Comment(s): miscarriage about 8 weeks bleeding 09/25/18 History of Any Multi-Drug Resistant Organisms: None Reported Past Surgical History: Section Past Anesthesia/Blood Transfusion Reactions: No Reported Reaction Past Psychological History: Anxiety, Depression Smoking Status: Current every day smoker Past Alcohol Use History: Occasional Past Drug Use History: None Reported - Past Family History Father Family Medical History: Hypertension <Chelsie Dia - Last Filed: 03/09/22 12:24> General Exam Limitations: no limitations <Chelsie Dia - Last Filed: 03/09/22 12:24> Limitations: no limitations General appearance: alert, in no apparent distress ENT exam: Present: normal exam, mucous membranes moist Respiratory exam: Present: normal lung sounds bilaterally. Absent: respiratory distress, wheezes, rales, rhonchi, stridor Cardiovascular Exam: Present: regular rate, normal rhythm, normal heart sounds. Absent: systolic murmur, diastolic murmur, rubs, gallop, clicks GI/Abdominal exam: Present: soft, tenderness (RLQ, suprapubic, periumbilical areas with mild tenderness upon palpation). Absent: distended, guarding, rebound, rigid Back exam: Absent: CVA tenderness (R), CVA tenderness (L) Neurological exam: Present: alert, oriented X3, CN II-XII intact <Maryanne Arellano - Last Filed: 03/10/22 04:09> Course <Maryanne Arellano - Last Filed: 03/10/22 04:09> Vital Signs 03/09/22 03/09/22 12:13 18:11 Pulse Rate 85 91 Respiratory 16 18 Rate Blood Pressure 135/91 130/91 O2 Sat by Pulse 98 97 Oximetry - Reevaluation(s) Reevaluation #1: 03/09/22 18:55 Upon reassessment, patient is resting more comfortably. She is well in appearing and reports readiness for discharge. (Maryanne Arellano) Medical Decision Making - Lab Data Result diagrams: 03/09/22 18:11 03/09/22 13:30 - Radiology Data Radiology results: report reviewed, image reviewed <Maryanne Arellano - Last Filed: 03/10/22 04:09> - Medical Decision Making This is a 36-year-old female who presents to the emergency Department with complaints of right lower quadrant abdominal pain, that has been worsening for the past week. Upon exam, patient is well-appearing and in no acute distress. She has mild right lower quadrant abdominal tenderness upon palpation. No guarding or rebound tenderness. Patient tolerating oral intake without d ifficulty. Laboratory studies are obtained and are unremarkable. CT of the abdomen and pelvis is negative for appendicitis or any other acute findings. Patient was given Toradol for pain with some improvement. She will be discharged home to follow up with her PCP for R recheck as needed. Work note was provided. Return precautions discussed in detail. Patient verbalizes understanding and agrees with this plan. Attending: Ion Was pt. sent in by a medical professional or institution? @ -No Did you speak to anyone other than the patient for history? @ -No Did you review nursing and triage notes? @ -Yes, agree Were old charts reviewed? @ -No Differential Diagnosis? @ -Abdominal pain, UTI, appendicitis, colitis, diverticulitis, this is not meant to be an exhaustive list EKG interpreted by me (3pts min.)? @ -Not applicable X-rays interpreted by me (1pt min.)? @ -Not applicable CT interpreted by me (1pt min.)? @ -CT of the abdomen and pelvis shows no evidence of appendicitis or obstructive process. U/S interpreted by me (1pt. min.)? @ -Not applicable What testing was considered but not performed? (CT, X-rays, U/S, labs)? Why? @ None What meds were considered but not given? Why? @ -Considered stronger pain medication but patient is caring for twin infants Did you discuss the management of the patient with other professionals? @ -None Did you reconcile home meds? @ -No Was smoking cessation discussed for >3mins.? @ -No Was critical care preformed (if so, how long)? @ -No Were there social determinants of health that impacted care today? How? (Homelessness, low income, unemployed, alcoholism, drug addiction, transportation, low edu. Level, literacy, decrease access to med. care, custodial, rehab)? @ -No Was there de-escalation of care discussed even if they declined? (Discuss DNR or withdrawal of care, Hospice)? @ -No What co-morbidities impacted this encounter? (DM, HTN, Smoking, COPD, CAD, Cancer, CVA, Hep., AIDS, mental health diagnosis, sleep apnea, morbid obesity)? @No Was patient admitted / discharged? @ -Discharged Undiagnosed new problem with uncertain prognosis? @ -None Drug Therapy requiring intensive monitoring for toxicity (Heparin, Nitro, Insulin, Cardizem)? @ -None Were any procedures done? @ -None Diagnosis/symptom? @ -Abdominal pain Acute, or Chronic, or Acute on Chronic? @ -Acute Uncomplicated (without systemic symptoms) or Complicated (systemic symptoms)? @ -Uncomplicated Side effects of treatment? @ -None Exacerbation, Progression, or Severe Exacerbation] @ -No Poses a threat to life or bodily function? @ -No (Maryanne Arellano) - Lab Data Lab Results 03/09/22 03/09/22 03/09/22 Range/Units 13:30 13:30 13:30 WBC (3.8-10.6) k/uL RBC (3.80-5.40) m/uL Hgb (11.4-16.0) gm/dL Hct (34.0-46.0) % MCV (80.0-100.0) fL MCH (25.0-35.0) pg MCHC (31.0-37.0) g/dL RDW (11.5-15.5) % Plt Count (150-450) k/uL MPV Neutrophils % % Lymphocytes % % Monocytes % % Eosinophils % % Basophils % % Neutrophils # (1.3-7.7) k/uL Lymphocytes # (1.0-4.8) k/uL Monocytes # (0-1.0) k/uL Eosinophils # (0-0.7) k/uL Basophils # (0-0.2) k/uL Sodium 136 L (137-145) mmol/L Potassium 3.9 (3.5-5.1) mmol/L Chloride 105 (98-107) mmol/L Carbon Dioxide 25 (22-30) mmol/L Anion Gap 6 mmol/L BUN 10 (7-17) mg/dL Creatinine 0.69 (0.52-1.04) mg/dL Est GFR (CKD-EPI)AfAm >90 (>60 ml/min/1.73 sqM) Est GFR (CKD-EPI)NonAf >90 (>60 ml/min/1.73 sqM) Glucose 128 H (74-99) mg/dL Calcium 8.7 (8.4-10.2) mg/dL Total Bilirubin 0.5 (0.2-1.3) mg/dL AST 23 (14-36) U/L ALT 18 (4-34) U/L Alkaline Phosphatase 57 (38-126) U/L Total Protein 6.6 (6.3-8.2) g/dL Albumin 4.2 (3.5-5.0) g/dL Urine Color Light Yellow Urine Appearance Clear (Clear) Urine pH 5.5 (5.0-8.0) Ur Specific [place] 1.008 (1.001-1.035) Urine Protein Negative (Negative) Urine Glucose (UA) Negative (Negative) Urine Ketones Negative (Negative) Urine Blood Negative (Negative) Urine Nitrite Negative (Negative) Urine Bilirubin Negative (Negative) Urine Urobilinogen <2.0 (<2.0) mg/dL Ur Leukocyte Esterase Negative (Negative) Urine HCG, Qual Not Detected (Not Detectd) 03/09/22 Range/Units 18:11 WBC 8.1 (3.8-10.6) k/uL RBC 3.82 (3.80-5.40) m/uL Hgb 12.8 (11.4-16.0) gm/dL Hct 36.0 (34.0-46.0) % MCV 94.0 (80.0-100.0) fL MCH 33.5 (25.0-35.0) pg MCHC 35.7 (31.0-37.0) g/dL RDW 13.2 (11.5-15.5) % Plt Count 228 (150-450) k/uL MPV 8.2 Neutrophils % 71 % Lymphocytes % 19 % Monocytes % 5 % Eosinophils % 2 % Basophils % 1 % Neutrophils # 5.8 (1.3-7.7) k/uL Lymphocytes # 1.5 (1.0-4.8) k/uL Monocytes # 0.4 (0-1.0) k/uL Eosinophils # 0.2 (0-0.7) k/uL Basophils # 0.1 (0-0.2) k/uL Sodium (137-145) mmol/L Potassium (3.5-5.1) mmol/L Chloride (98-107) mmol/L Carbon Dioxide (22-30) mmol/L Anion Gap mmol/L BUN (7-17) mg/dL Creatinine (0.52-1.04) mg/dL Est GFR (CKD-EPI)AfAm (>60 ml/min/1.73 sqM) Est GFR (CKD-EPI)NonAf (>60 ml/min/1.73 sqM) Glucose (74-99) mg/dL Calcium (8.4-10.2) mg/dL Total Bilirubin (0.2-1.3) mg/dL AST (14-36) U/L ALT (4-34) U/L Alkaline Phosphatase (38-126) U/L Total Protein (6.3-8.2) g/dL Albumin (3.5-5.0) g/dL Urine Color Urine Appearance (Clear) Urine pH (5.0-8.0) Ur Specific [place] (1.001-1.035) Urine Protein (Negative) Urine Glucose (UA) (Negative) Urine Ketones (Negative) Urine Blood (Negative) Urine Nitrite (Negative) Urine Bilirubin (Negative) Urine Urobilinogen (<2.0) mg/dL Ur Leukocyte Esterase (Negative) Urine HCG, Qual (Not Detectd) - Radiology Data Interpreted by me: Per my interpretation, CT shows no acute findings of inflammatory process or obstruction. (Maryanne Arellano) CT of the abdomen and pelvis without contrast was obtained. Report was reviewed in its entirety. Impression per Dr. Christensen is no suspicious acute findings are evident. (Maryanne Arellano) Disposition <Chelsie Dia - Last Filed: 03/09/22 12:24> Is patient prescribed a controlled substance at d/c from ED?: No Time of Disposition: 18:57 <Maryanne Arellano - Last Filed: 03/10/22 04:09> Clinical Impression: Right lower quadrant abdominal pain Disposition: HOME SELF-CARE Condition: Stable Instructions (If sedation given, give patient instructions): Abdominal Pain (E D) Additional Instructions: My inclination is that this is musculoskeletal pain. Take Tylenol or Toradol if needed for pain. Do not take Motrin in addition to Toradol. You were provided with a note. Rest and take it easy tomorrow. Light duty remainder of the week. If you develop fever, repeated episodes of vomiting, or worsening pain. Return to the emergency department immediately. Prescriptions: Ketorolac [Toradol] 10 mg PO Q8HR PRN #15 tab PRN Reason: Pain Referrals: None,Stated [Primary Care Provider] - 1-2 days
[2022-03-09 13:57] LABS: ALT 18 U/L (4-34); AST 23 U/L (14-36); African American GFR (CKD) >90 (>60 ml/min/1.73 sqM); Albumin 4.2 g/dL (3.5-5.0); Alkaline Phosphatase 57 U/L (38-126); Anion Gap 6 mmol/L; Blood Urea Nitrogen 10 mg/dL (7-17); Calcium 8.7 mg/dL (8.4-10.2); Carbon Dioxide 25 mmol/L (22-30); Chloride 105 mmol/L (98-107); Glucose 128 mg/dL (74-99); Non-African American GFR(CKD) >90 (>60 ml/min/1.73 sqM); Potassium 3.9 mmol/L (3.5-5.1); Sodium 136 mmol/L (137-145); Total Bilirubin 0.5 mg/dL (0.2-1.3); Total Protein 6.6 g/dL (6.3-8.2)
--- NOTE | 2022-03-09 13:57 | CT ---
EXAMINATION TYPE: CT abdomen pelvis wo con DATE OF EXAM: 03/09/2022 HISTORY: RLQ pain CT DLP: 286.5 mGycm. Automated Exposure Control for Dose Reduction was Utilized. TECHNIQUE: CT scan of the abdomen and pelvis is performed without oral or IV contrast. COMPARISON: NONE FINDINGS: Within the limitations of a non-contrast study, the following observations are made. LUNG BASES: No significant abnormality is appreciated. LIVER/GB: No significant abnormality is appreciated. PANCREAS: No significant abnormality is seen. SPLEEN: Scattered calcifications throughout the spleen consistent with product of old granulomatous d isease. ADRENALS: No significant abnormality is seen. KIDNEYS: No renal stones or hydronephrosis is present bilaterally. BOWEL: Low-lying cecum into the right pelvis. Normal-appearing appendix and posterior aspect of the c ecum. No suspicious small or large bowel dilatation. GENITAL ORGANS: Anteverted uterus. Tubal ligation clips along the periphery. No free fluid. LYMPH NODES: No greater than 1cm abdominal or pelvic lymph nodes are appreciated. OSSEOUS STRUCTURES: There is levoconvex scoliosis centered at L2-L3 level. Mild facet arthropathy low er lumbar levels. OTHER: No significant additional abnormality is seen. IMPRESSION: No suspicious acute findings are evident.
[2022-03-09 16:20] LABS: Appearance,Urine Clear (Clear); Bilirubin,Urine Negative (Negative); Blood,Urine Negative (Negative); Color,Urine Light Yellow; Glucose,Urine (UA) Negative (Negative); Ketones,Urine Negative (Negative); Leukocyte Esterase,Urine Negative (Negative); Nitrite,Urine Negative (Negative); PH, Urine 5.5 (5.0-8.0); Protein,Urine Negative (Negative); Specific Gravity,Urine 1.008 (1.001-1.035); Urobilinogen,Urine <2.0 mg/dL (<2.0)
[2022-03-09] MEDS ORDERED: ONDANSETRON 4 MG/2 ML VIAL IVP STA (17:33)
[2022-03-09] MEDS ORDERED: KETOROLAC 15 MG/ML 1 ML VIAL IVP STA (17:33)
[2022-03-09 18:12] VITALS: BP 130/91; PULSE 91; RESP 18
[2022-03-09 18:24] LABS: Basophils # (A) 0.1 k/uL (0-0.2); Basophils % (A) 1 %; Eosinophils # (A) 0.2 k/uL (0-0.7); Eosinophils % (A) 2 %; HGB 12.8 gm/dL (11.4-16.0); Lymphocytes # (A) 1.5 k/uL (1.0-4.8); Lymphocytes % (A) 19 %; MCH 33.5 pg (25.0-35.0); MCHC 35.7 g/dL (31.0-37.0); Mean Platelet Volume 8.2; Monocytes # (A) 0.4 k/uL (0-1.0); Monocytes % (A) 5 %; Neutrophils # (A) 5.8 k/uL (1.3-7.7); Neutrophils % (A) 71 %; Platelet Count 228 k/uL (150-450); RBC 3.82 m/uL (3.80-5.40); RDW 13.2 % (11.5-15.5); WBC 8.1 k/uL (3.8-10.6)
== END 2022-03-09 20:08 | disposition home or self-care (01) ==
LOC: EC 11:33
DX: R10.31 Right lower quadrant pain (principal); J45.909 Unspecified asthma, uncomplicated; F41.9 Anxiety disorder, unspecified; F32.A Depression, unspecified; F17.200 Nicotine dependence, unspecified, uncomplicated; Z91.030 Bee allergy status; Z79.899 Other long term (current) drug therapy
CPT/HCPCS: 36415; 80053; 85025; 81003; 81025; 74176; 99284; 96374; 96375; J2405; J1885

== ENCOUNTER 2024-01-05 12:48 | Emergency (ER) | payer SELFPAY ==
[2024-01-05 13:18] VITALS: TEMP 97.9
--- NOTE | 2024-01-05 13:28 | ED ---
Abdominal Pain HPI - General Source: patient, RN notes reviewed Mode of arrival: ambulatory Limitations: no limitations - History of Present Illness MD Complaint: abdominal pain <Christen aVlero - Last Filed: 01/05/24 14:26> <Doroteo Quinteros - Last Filed: 01/05/24 17:51> - General Chief Complaint: Abdominal Pain Stated Complaint: abd pain Time Seen by Provider: 01/05/24 13:25 - History of Present Illness Initial Comments: Quick Note: This is a 38 year old female who presents to the emergency department for lower abdominal pain starting yesterday. Pain is not worse on any particular side. She has associated nausea and vomiting. Denies any hx of similar pain in the past or changes in bowel/bladder habits. (Christen Valero) This is a 38-year-old female who presents to the emergency department complaining of lower abdominal pain that started yesterday. Patient states it is in the center of her lower abdomen. Patient states she is trying to have a bowel movement or even passing gas and it made her pain a lot worse. Patient denies hematuria or dysuria. Patient states she has had some pain like this in the past but not ever lasting this long. Patient denies any back pain. Patient has any fever chills. Patient states the pain got so bad earlier she did vomit once. (Doroteo Quinteros) - Related Data Home Medications Medication Instructions Recorded Confirmed Albuterol Nebulized [Ventolin 2.5 mg INHALATION RT-QID 12/30/16 03/09/22 Nebulized] Albuterol Sulfate [Proair Hfa] 2 puff INHALATION RT-TID PRN 10/28/20 03/09/22 Budesonide/Formoterol Fumarate 2 puff INHALATION RT-BID 10/28/20 03/09/22 [Symbicort 160-4.5 Mcg Inhaler] busPIRone HCl [Buspar] 10 mg PO BID PRN 03/09/22 03/09/22 Previous Rx's Medication Instructions Recorded Ketorolac [Toradol] 10 mg PO Q8HR PRN #15 tab 03/09/22 Amoxic-Pot Clav 875-125Mg 1 tab PO BID #20 tab 10/18/22 [Augmentin 875-125] Doxycycline Hyclate 100 mg PO BID 7 Days #14 cap 11/22/22 Nystatin 100,000 Unit/ml Susp 5 ml PO QID #200 ml 11/22/22 [Mycostatin Oral Susp] Allergies Allergy/AdvReac Type Severity Reaction Status Date / Time amoxicillin [From Augmentin] Allergy Rash/Hives Verified 01/05/24 13:18 bee venom protein (honey bee) Allergy Anaphylaxis Verified 01/05/24 13:18 clavulanic acid Allergy Rash/Hives Verified 01/05/24 13:18 [From Augmentin] Review of Systems ROS Other: All systems not noted in ROS Statement are negative. <Christen Valero - Last Filed: 01/05/24 14:26> ROS Other: All systems not noted in ROS Statement are negative. <Doroteo Quinteros - Last Filed: 01/05/24 17:51> ROS Statement: Those systems with pertinent positive or pertinent negative responses have been documented in the HPI. Past Medical History Past Medical History: Asthma, COPD Additional Past Medical History / Comment(s): miscarriage about 8 weeks bleeding 09/25/18 History of Any Multi-Drug Resistant Organisms: None Reported Past Surgical History: Section Past Anesthesia/Blood Transfusion Reactions: No Reported Reaction Past Psychological History: Anxiety, Depression Smoking Status: Current every day smoker Past Alcohol Use History: Occasional Past Drug Use History: Marijuana - Past Family History Father Family Medical History: Hypertension <Christen Valero - Last Filed: 01/05/24 14:26> General Exam Limitations: no limitations <Christen Valero - Last Filed: 01/05/24 14:26> <Doroteo Quinteros - Last Filed: 01/05/24 17:51> - General Exam Comments Initial Comments: Visual Physical Exam Vital signs reviewed General: In distress Head: Normocephalic, atraumatic Eyes: PERRLA, EOMI ENT: Airway patent Chest: Nonlabored breathing Skin: No visual rash, normal skin tone Neuro: Alert and oriented 3 Musculoskeletal: No gross abnormalities (Christen Valero) GENERAL: Patient is well-developed and well-nourished. Patient is nontoxic and well-hydrated and is in mild distress. ENT: Neck is soft and supple. No significant lymphadenopathy is noted. Oropharynx is clear. Moist mucous membranes. Neck has full range of motion without eliciting any pain. EYES: The sclera were anicteric and conjunctiva were pink and moist. Extraocular movements were intact and pupils were equal round and reactive to light. Eyelids were unremarkable. PULMONARY: Unlabored respirations. Good breath sounds bilaterally. No audible rales rhonchi or wheezing was noted. CARDIOVASCULAR: There is a regular rate and rhythm without any murmurs gallops or rubs. ABDOMEN: Suprapubic region mildly tender no rebound. SKIN: Skin is clear with no lesions or rashes and otherwise unremarkable. NEUROLOGIC: Patient is alert and oriented x3. Cranial nerves II through XII are grossly intact. Motor and sensory are also intact. Normal speech, volume and content. Symmetrical smile. MUSCULOSKELETAL: Normal extremities with adequate strength and full range of motion. LYMPHATICS: No significant lymphadenopathy is noted PSYCHIATRIC: Normal psychiatric evaluation. (Doroteo Quinteros) Course Vital Signs 01/05/24 01/05/24 13:15 16:39 Temperature 97.9 F Pulse Rate 99 87 Respiratory 20 16 Rate Blood Pressure 152/93 127/99 O2 Sat by Pulse 98 97 Oximetry Medical Decision Making <Christen Valero - Last Filed: 01/05/24 14:26> - Lab Data Result diagrams: 01/05/24 14:13 01/05/24 14:13 <Doroteo Quinteros - Last Filed: 01/05/24 17:51> - Medical Decision Making I performed the QuickNote portion of this chart. Signed Christen Valero PA-C. (Christen Valero) Was pt. sent in by a medical professional or institution (SHANA Corrigan, INTERVENTION MANAGER, urgent care, hospital, or shelter...) When possible be specific @ -No Did you speak to anyone other than the patient for history (EMS, parent, family, police, friend...)? What history was obtained from this source @ -No Did you review nursing and triage notes (agree or disagree)? Why? @ -I reviewed and agree with nursing and triage notes Were old charts reviewed (outside hosp., previous admission, EMS record, old EKG, old radiological studies, urgent care reports/EKG's, shelter records)? Report findings @ -No old charts were reviewed Differential Diagnosis? @ -MDM abdominal pain women EKG interpreted by me (3pts min.). @ -As above X-rays interpreted by me (1pt min.). @ -None done CT interpreted by me (1pt min.). @ -CT abdomen pelvis shows no acute abnormality. U/S interpreted by me (1pt. min.). @ -None done What testing was considered but not performed or refused? (CT, X-rays, U/S, labs)? Why? @ -None What meds were considered but not given or refused? Why? @ -None Did you discuss the management of the patient with other professionals (professionals i.e. DrJena, PA, INTERVENTION MANAGER, lab, RT, psych nurse, social sciences professor, side laster, teacher, commercial loan officer, block and case maker)? Give summary @ -No Was smoking cessation discussed for >3mins.? @ -No Was critical care preformed (if so, how long)? @ -No Were there social determinants of health that impacted care today? How? (Ho melessness, low income, unemployed, alcoholism, drug addiction, transportation, low edu. Level, literacy, decrease access to med. care, senior care, rehab)? @ -No Was there de-escalation of care discussed even if they declined (Discuss DNR or withdrawal of care, Hospice)? DNR status @ -No What co-morbidities impacted this encounter? (DM, HTN, Smoking, COPD, CAD, Cancer, CVA, ARF, Chemo, Hep., AIDS, mental health diagnosis, sleep apnea, morbid obesity)? @ -None Was patient admitted / discharged? Hospital course, mention meds given and route, prescriptions, significant lab abnormalities, going to OR and other pertinent info. @ -I went back into the room and patient was sleeping I woke her up and she was in no pain at this time so she will follow-up with her primary medical care doctor. Undiagnosed new problem with uncertain prognosis? @ -No Drug Therapy requiring intensive monitoring for toxicity (Heparin, Nitro, Insulin, Cardizem)? @ -No Were any procedures done? @ -No Diagnosis/symptom? @ -Abdominal pain Acute, or Chronic, or Acute on Chronic? @ -Acute Uncomplicated (without systemic symptoms) or Complicated (systemic symptoms)? @ -Complicated Side effects of treatment? @ -No Exacerbation, Progression, or Severe Exacerbation? @ -No Poses a threat to life or bodily function? How? (Chest pain, [place], [place], pneumonia, PE, COPD, DKA, ARF, appy, cholecystitis, CVA, Diverticulitis, Homicidal, S uicidal, threat to staff... and all critical care pts) @ -No (AldairLouieDoroteo) - Lab Data Lab Results 01/05/24 01/05/24 01/05/24 Range/Units 14:11 14:11 14:13 WBC 11.9 H (3.8-10.6) k/uL RBC 4.60 (3.80-5.40) m/uL Hgb 14.9 (11.4-16.0) gm/dL Hct 45.2 (34.0-46.0) % MCV 98.3 (80.0-100.0) fL MCH 32.5 (25.0-35.0) pg MCHC 33.0 (31.0-37.0) g/dL RDW 12.7 (11.5-15.5) % Plt Count 291 (150-450) k/uL MPV 7.2 Neutrophils % 83 % Lymphocytes % 8 % Monocytes % 4 % Eosinophils % 4 % Basophils % 0 % Neutrophils # 9.8 H (1.3-7.7) k/uL Lymphocytes # 1.0 (1.0-4.8) k/uL Monocytes # 0.5 (0-1.0) k/uL Eosinophils # 0.4 (0-0.7) k/uL Basophils # 0.1 (0-0.2) k/uL Sodium (137-145) mmol/L Potassium (3.5-5.1) mmol/L Chloride (98-107) mmol/L Carbon Dioxide (22-30) mmol/L Anion Gap mmol/L BUN (7-17) mg/dL Creatinine (0.52-1.04) mg/dL Est GFR (CKD-EPI)AfAm (>60 ml/min/1.73 sqM) Est GFR (CKD-EPI)NonAf (>60 ml/min/1.73 sqM) Glucose (74-99) mg/dL Plasma Lactic Acid Berhane (0.7-2.0) mmol/L Calcium (8.4-10.2) mg/dL Total Bilirubin (0.2-1.3) mg/dL AST (14-36) U/L ALT (4-34) U/L Alkaline Phosphatase (38-126) U/L Total Protein (6.3-8.2) g/dL Albumin (3.5-5.0) g/dL Amylase (30-110) U/L Lipase (23-300) U/L Urine Color Colorless Urine Appearance Cloudy H (Clear) Urine pH 5.5 (5.0-8.0) Ur Specific Fleming 1.013 (1.001-1.035) Urine Protein Negative (Negative) Urine Glucose (UA) Negative (Negative) Urine Ketones Negative (Negative) Urine Blood Trace H (Negative) Urine Nitrite Negative (Negative) Urine Bilirubin Negative (Negative) Urine Urobilinogen <2.0 (<2.0) mg/dL Ur Leukocyte Esterase Negative (Negative) Urine RBC 1 (0-5) /hpf Urine WBC <1 (0-5) /hpf Ur Squamous Epith Cells 5 H (0-4) /hpf Urine Bacteria Rare H (None) /hpf Urine Mucus Rare H (None) /hpf Urine HCG, Qual Not Detected (Not Detectd) 01/05/24 01/05/24 Range/Units 14:13 14:13 WBC (3.8-10.6) k/uL RBC (3.80-5.40) m/uL Hgb (11.4-16.0) gm/dL Hct (34.0-46.0) % MCV (80.0-100.0) fL MCH (25.0-35.0) pg MCHC (31.0-37.0) g/dL RDW (11.5-15.5) % Plt Count (150-450) k/uL MPV Neutrophils % % Lymphocytes % % Monocytes % % Eosinophils % % Basophils % % Neutrophils # (1.3-7.7) k/uL Lymphocytes # (1.0-4.8) k/uL Monocytes # (0-1.0) k/uL Eosinophils # (0-0.7) k/uL Basophils # (0-0.2) k/uL Sodium 139 (137-145) mmol/L Potassium 4.6 (3.5-5.1) mmol/L Chloride 111 H (98-107) mmol/L Carbon Dioxide 20 L (22-30) mmol/L Anion Gap 8 mmol/L BUN 5 L (7-17) mg/dL Creatinine 0.54 (0.52-1.04) mg/dL Est GFR (CKD-EPI)AfAm >90 (>60 ml/min/1.73 sqM) Est GFR (CKD-EPI)NonAf >90 (>60 ml/min/1.73 sqM) Glucose 99 (74-99) mg/dL Plasma Lactic Acid Berhane 1.1 (0.7-2.0) mmol/L Calcium 9.1 (8.4-10.2) mg/dL Total Bilirubin 0.4 (0.2-1.3) mg/dL AST 20 (14-36) U/L ALT 11 (4-34) U/L Alkaline Phosphatase 62 (38-126) U/L Total Protein 6.7 (6.3-8.2) g/dL Albumin 4.1 (3.5-5.0) g/dL Amylase 50 (30-110) U/L Lipase 53 (23-300) U/L Urine Color Urine Appearance (Clear) Urine pH (5.0-8.0) Ur Specific Fleming (1.001-1.035) Urine Protein (Negative) Urine Glucose (UA) (Negative) Urine Ketones (Negative) Urine Blood (Negative) Urine Nitrite (Negative) Urine Bilirubin (Negative) Urine Urobilinogen (<2.0) mg/dL Ur Leukocyte Esterase (Negative) Urine RBC (0-5) /hpf Urine WBC (0-5) /hpf Ur Squamous Epith Cells (0-4) /hpf Urine Bacteria (None) /hpf Urine Mucus (None) /hpf Urine HCG, Qual (Not Detectd) Disposition <Christen Valero - Last Filed: 01/05/24 14:26> Is patient prescribed a controlled substance at d/c from ED?: No Time of Disposition: 17:51 <Doroteo Quinteros - Last Filed: 01/05/24 17:51> Clinical Impression: Abdominal pain Disposition: HOME SELF-CARE Instructions (If sedation given, give patient instructions): Abdominal Pain (ED) Referrals: None,Stated [REFERRING] - 1-2 days
[2024-01-05 14:30] LABS: Basophils # (A) 0.1 k/uL (0-0.2); Basophils % (A) 0 %; Eosinophils # (A) 0.4 k/uL (0-0.7); Eosinophils % (A) 4 %; HCT 45.2 % (34.0-46.0); HGB 14.9 gm/dL (11.4-16.0); Lymphocytes % (A) 8 %; MCH 32.5 pg (25.0-35.0); MCV 98.3 fL (80.0-100.0); Mean Platelet Volume 7.2; Monocytes # (A) 0.5 k/uL (0-1.0); Monocytes % (A) 4 %; Neutrophils # (A) 9.8 k/uL (1.3-7.7); Neutrophils % (A) 83 %; Platelet Count 291 k/uL (150-450); RDW 12.7 % (11.5-15.5); WBC 11.9 k/uL (3.8-10.6)
[2024-01-05 14:50] LABS: ALT 11 U/L (4-34); AST 20 U/L (14-36); African American GFR (CKD) >90 (>60 ml/min/1.73 sqM); Albumin 4.1 g/dL (3.5-5.0); Alkaline Phosphatase 62 U/L (38-126); Amylase 50 U/L (30-110); Anion Gap 8 mmol/L; Blood Urea Nitrogen 5 mg/dL (7-17); Calcium 9.1 mg/dL (8.4-10.2); Carbon Dioxide 20 mmol/L (22-30); Chloride 111 mmol/L (98-107); Glucose 99 mg/dL (74-99); Lipase 53 U/L (23-300); Non-African American GFR(CKD) >90 (>60 ml/min/1.73 sqM); Potassium 4.6 mmol/L (3.5-5.1); Sodium 139 mmol/L (137-145); Total Bilirubin 0.4 mg/dL (0.2-1.3); Total Protein 6.7 g/dL (6.3-8.2)
[2024-01-05 16:06] LABS: Appearance,Urine Cloudy (Clear); Bacteria,Urine Rare /hpf; Bilirubin,Urine Negative (Negative); Blood,Urine Trace (Negative); Color,Urine Colorless; Glucose,Urine (UA) Negative (Negative); Ketones,Urine Negative (Negative); Leukocyte Esterase,Urine Negative (Negative); Mucus,Urine Rare /hpf; Nitrite,Urine Negative (Negative); PH, Urine 5.5 (5.0-8.0); Protein,Urine Negative (Negative); RBC,Urine 1 /hpf (0-5); Specific Gravity,Urine 1.013 (1.001-1.035); Squamous Epithelial Cell,Urine 5 /hpf (0-4); Urobilinogen,Urine <2.0 mg/dL (<2.0); WBC,Urine <1 /hpf (0-5)
[2024-01-05 16:39] VITALS: RESP 16
--- NOTE | 2024-01-05 16:44 | CT ---
EXAMINATION TYPE: CT abdomen pelvis w con DATE OF EXAM: 01/05/2024 4:23 PM COMPARISON: 03/09/2022 CLINICAL INDICATION: Female, 38 years old with history of Lower abdominal pain; Severe lower abdomina l pain. Nausea, vomiting. TECHNIQUE: Axial CT abdomen pelvis w con;Sagittal and coronal reformats were created on a separate w orkstation. Contrast used:80cc mL of Isovue 300 with IV Contrast, (none if empty) Oral contrast used: without Oral Contrast (none if empty) CT DLP: 446 mGycm, Automated exposure control for dose reduction was used. FINDINGS: LOWER CHEST: Right lower quadrant calcified granuloma. ABDOMEN LIVER: Unremarkable GALLBLADDER AND BILE DUCTS: Unremarkable. PANCREAS: Unremarkable. SPLEEN: Scattered calcified granulomas. ADRENAL GLANDS: Unremarkable. KIDNEYS AND URETERS: No evidence of hydronephrosis or renal calculus. The ureters are unremarkable. PELVIS BLADDER: No evidence for wall thickening or mass given limitations of exam. REPRODUCTIVE: Corpus luteum in the left ovary. Hyperemia of the endometrium. ABDOMEN & PELVIS STOMACH AND BOWEL: No evidence of bowel obstruction. The appendix is normal. PERITONEUM/RETROPERITONEUM: No evidence of pneumoperitoneum or free fluid. VASCULATURE: No evidence of aortic aneurysm. MUSCULOSKELETAL: No acute osseous abnormalities LYMPH NODES: No gross evidence for lymphadenopathy. SOFT TISSUE/ABDOMINAL WALL: Unremarkable IMPRESSION: 1. No definitive lower abdominal process to explain patient's pain. 2. No obstructive uropathy. The appendix is normal. 3. Sequela of granulomatous disease with calcified granulomas in the spleen and right lower lung. [facility], , 01/05/2024 4:42 PM
[2024-01-05 18:17] VITALS: BP 122/76; PULSE 76
== END 2024-01-05 18:17 | disposition home or self-care (01) ==
LOC: EC 12:48
DX: R10.30 Lower abdominal pain, unspecified (principal); F17.200 Nicotine dependence, unspecified, uncomplicated; Z88.1 Allergy status to other antibiotic agents; Z88.0 Allergy status to penicillin; Z91.030 Bee allergy status
CPT/HCPCS: 36415; 80053; 82150; 83605; 83690; 85025; 81001; 81025; 74177; 99284; Q9967